=== PATIENT | female | born 1985 | race Caucasian/White ===

== ENCOUNTER 2018-12-07 19:28 | Emergency (ER) | payer OTHER ==
[~2018-12-07] VITALS: Ht 160 cm; Wt 108.9 kg
[2018-12-07 19:35] VITALS: BP 138/77
--- NOTE | 2018-12-07 19:46 | NUR ---
Pt ambulated to bed 5.
--- NOTE | 2018-12-07 19:47 | NUR ---
GAVE REPORT TO CHANTALE RODAS, PT AMBULATED TO THE RESTROOM. PT TOLERATED WELL.
[2018-12-07] MEDS ORDERED: KETOROLAC 60 MG/2 ML VIAL IM ONE (20:05)
--- NOTE | 2018-12-07 20:07 | NUR ---
Pt presents to ED with c/o headache that started this morning around 0700. Pt states the headache is mostly to left side of face and behind left eye. Pt states she had this pain once in the past that was relieved by Excedrin. Today pt states she took Tylenol and Excedrin with no relief. Patient also c/o numbness to left side of face and heaviness to left eye lid. No facial droop noted. [employer] and pushes strong and equal bilaterally. Pt c/o blurry vision. Pt reports photophobia. Lights dimmed in room. towel provided to cover eyes as extra support to darkening of room. Pt also reported some nausea today, denies at this time. VSS. NAD noted. Denies medical hx. Family at bedside. Will continue to monitor.
--- NOTE | 2018-12-07 22:00 | NUR ---
Pt appears to be resting comfortably at this time. Pain improved. 01/23. NAD noted. Pt no longer facial grimacing. Pt states the pain is now more localized behind her left eye. Denies any numbness or tingling at this time. VSS.
--- NOTE | 2018-12-07 22:24 | NUR ---
Dr. Coffey evaluating patient at bedside.
[2018-12-07 22:37] VITALS: BP 120/55
--- NOTE | 2018-12-07 22:37 | NUR ---
Patient discharged with v/s stable. Written and verbal after care instructions given and explained. Patient alert, oriented and verbalized understanding of instructions. Ambulatory with steady gait. All questions addressed prior to discharge. ID band removed. Patient advised to follow up with PMD. Rx of MOTRIN, NORCO AND CIPROFLOXACIN given. Patient educated on indication of medication including possible reaction and side effects. Opportunity to ask questions provided and answered.
== END 2018-12-07 22:37 | disposition home or self-care (01) ==
LOC: MED 19:28
DX: R51 Headache (principal); N39.0 Urinary tract infection, site not specified; H57.12 Ocular pain, left eye
CPT/HCPCS: 81002; 81025; 96372; 99283; J1885